=== PATIENT | male | born 1965 | race Caucasian/White ===

== ENCOUNTER 2018-02-09 08:48 | Emergency (ER) | payer BC ==
[2018-02-09] MEDS ORDERED: metroNIDAZOLE 500 MG TAB ONE (09:35)
[2018-02-09] MEDS ORDERED: Ciprofloxacin 500 MG TAB ONE (09:35)
[2018-02-09] MEDS ORDERED: Cipro 250 MG TAB ONE (09:36)
== END 2018-02-09 09:39 | disposition home or self-care (01) ==
LOC: SCSER 08:48
DX: R10.32 Left lower quadrant pain (principal); F41.9 Anxiety disorder, unspecified; M10.9 Gout, unspecified; Z87.442 Personal history of urinary calculi
CPT/HCPCS: 99283

== ENCOUNTER 2018-04-03 17:25 | Emergency (ER) | payer BC ==
[2018-04-03 19:08] LABS: #Basophils 0.1 thou/uL (0.0-0.2); #Eosinphils 0.2 thou/uL (0.0-0.7); #Lymphocytes 2.5 thou/uL (1.20-3.40); #Monocytes 0.8 thou/uL (0.11-0.59); %Basophils 0.6 % (0.0-1.0); %Eosinophils 1.9 % (0.0-10.0); %Lymphocytes 25.9 % (21.0-51.0); %Monocytes 8.8 % (0.0-10.0); %Neutrophils 62.8 % (42.0-75.0); Hemoglobin 18.8 g/dL (14.0-18.0); Mean Corpuscular HGB CONC 34.3 g/dL (32.0-36.0); Mean Corpuscular Hemoglobin 29.7 pg (27.0-31.0); Mean Corpuscular Volume 86.6 fL (78.0-98.0); Platelet Count 243 thou/uL (130-400); Red Blood Cell (RBC) Count 6.33 mill/uL (4.70-6.10); White Blood Cell (WBC) Count 9.5 thou/uL (4.8-10.8)
[2018-04-03 19:31] LABS: ALT (SGPT) 41 U/L (8-55); AST (SGOT) 21 U/L (5-34); Albumin 4.7 g/dL (3.5-5.0); Alkaline Phosphatase 44 U/L (40-150); Anion Gap 17 mmol/L (10-20); BUN (Urea Nitrogen) 27 mg/dL (8.4-25.7); Bilirubin, Total 0.6 mg/dL (0.2-1.2); Calc. Creatinine Clearance 0 mL/min (70-130); Calcium 9.7 mg/dL (7.8-10.44); Carbon Dioxide 17 mmol/L (22-29); Chloride 107 mmol/L (98-107); Estimated GFR-MDRD 47; Globulin 3.6 g/dL (2.4-3.5); Glucose 156 mg/dL (70-105); Potassium 3.8 mmol/L (3.5-5.1); Protein, Total 8.3 g/dL (6.0-8.3); Sodium 137 mmol/L (136-145)
[2018-04-03 19:40] LABS: Bilirubin Small (Negative); Blood, Urine Negative (Negative); Clarity CLEAR (Clear); Glucose, Urine (Dipstick) 250 mg/dL (Negative); Leukocyte Negative (Negative); Nitrite Negative (Negative); Protein, Urine (Dipstick) 300 mg/dL (Neg-Trace); Specific Gravity, Urine 1.032 (1.002-1.036); Urobilinogen 0.2 mg/dL (0.2-1.0)
[2018-04-03 19:43] LABS: Bacteria/HPF None Seen HPF (None Seen)
[2018-04-03 19:44] LABS: Pathc Cast-AUWi Flag 12.21 (0-2.49)
[2018-04-03 19:53] LABS: RBC/HPF 0-3 HPF (0-3)
[2018-04-03 19:54] LABS: Renal Epithelial 0-3 HPF (0-3); Transitional Epithelial 0-3 HPF (0-3)
[2018-04-03 20:47] LABS: CKMB 1.5 ng/mL (0-6.6); Troponin I Less than 0.010 ng/mL (< 0.028)
[2018-04-03] MEDS ORDERED: Acetaminophen 500 MG TAB ONE (20:53)
== END 2018-04-03 22:45 | disposition home or self-care (01) ==
LOC: ERS 17:25
DX: R19.7 Diarrhea, unspecified (principal); F41.9 Anxiety disorder, unspecified; M10.9 Gout, unspecified; Z79.899 Other long term (current) drug therapy; Z79.84 Long term (current) use of oral hypoglycemic drugs; Z79.82 Long term (current) use of aspirin; Z87.442 Personal history of urinary calculi
CPT/HCPCS: 36415; 80053; 81003; 81015; 82553; 83605; 83630; 83690; 84484; 85025; 87040; 87045; 87046; 87324; 87328; 87329; 87449; 87899; 93005; 96360; 96361